=== PATIENT | female | born 1945 | race American Indian/Alaskan Native ===

== ENCOUNTER 2017-05-07 09:03 | Day surgery (SDC) | payer MEDICARE ==
--- NOTE | 2017-05-07 12:04 | Short Stay Summary ---
Short Stay Documentation Date of service: 05/07/17 - History Principal diagnosis: bilateral thyroid nodules H&P: obtained from office - Allergies and Medications Current Medications: Allergies acetaminophen [From Percocet] Allergy (Verified 05/07/17 09:37) Anaphylaxis codeine Allergy (Verified 05/07/17 09:37) Vomiting morphine Allergy (Verified 05/07/17 09:37) Vomiting oxycodone HCl [From Percocet] Allergy (Verified 05/07/17 09:37) Anaphylaxis pentazocine lactate [From Talwin] Allergy (Verified 05/07/17 09:37) Anaphylaxis Sulfa (Sulfonamide Antibiotics) Allergy (Verified 05/07/17 09:37) Vomiting Home Medications Medication Instructions Recorded Confirmed Last Taken Type AtorvaSTATin [Lipitor] 10 mg PO DAILY 05/07/17 05/07/17 05/06/17 History Hydralazine HCl [Apresoline TAB] 50 mg PO BID 05/07/17 05/07/17 05/06/17 History Losartan [Cozaar] 50 mg PO DAILY 05/07/17 05/07/17 05/06/17 History Metoprolol Xl 200 mg PO DAILY 05/07/17 05/07/17 05/06/17 History metFORMIN [Glucophage] 1,000 mg PO DAILY 05/07/17 05/07/17 05/06/17 History - Physical exam General appearance: no acute distress HEENT: PERRLA, EOMI, Mucous membr. moist/pink - Brief post op/procedure progress note Date of procedure: 05/07/17 Pre-op diagnosis: bilateral thyroid nodules Post-op diagnosis: same Procedure: US thyroid biopsy bilateral Anesthesia: local Surgeon: MAGDALENO BLANTON Estimated blood loss: none Pathology: list (FNA, rotex biopsy) - Disposition Condition at discharge: Good Disposition: DC-01 TO HOME OR SELFCARE Short Stay Discharge Plan Follow up with: ADRIANE CUEVA MD [Primary Care Provider] - 7 Days
[2017-05-07 12:15] VITALS: BP 152/83
--- NOTE | 2017-05-07 12:18 | Ultrasound Report ---
ULTRASOUND BIOPSY THYROID ULTRASOUND BIOPSY THYROID HISTORY: Nontoxic multinodular goiter, bilateral thyroid nodules. DESCRIPTION OF PROCEDURE: Informed consent was obtained. Sterile technique was utilized. 1% lidocaine for skin anesthesia. Using ultrasound guidance, fine needle aspiration and rotex biopsy was performed on the dominant nodule in the inferior right thyroid lobe measuring 3.9 x 2.2 cm. Using ultrasound guidance, fine needle aspiration and Rotex biopsy was performed on the dominant nodule in the inferior left thyroid lobe measuring 3.1 x 2.5 cm. The samples were deemed adequate by the pathologist on site. No complications. IMPRESSION: Successful ultrasound guided bilateral thyroid nodule biopsy.
== END 2017-05-07 12:40 | disposition home or self-care (01) ==
LOC: CATHLABREC 09:03
PROVIDERS: ATTEND Specialist
DX: E04.2 Nontoxic multinodular goiter (principal); Z88.6 Allergy status to analgesic agent; Z88.5 Allergy status to narcotic agent; Z88.2 Allergy status to sulfonamides; Z88.8 Allergy status to other drugs, medicaments and biological substances
CPT/HCPCS: 60100; 76942; 88112; 88172; 88173; 88305